=== PATIENT | female | born 1965 | race Caucasian/White ===

== ENCOUNTER 2019-07-02 11:32 | Outpatient (CLI) | payer MEDICAID ==
--- NOTE | 2019-07-03 02:33 | Ultrasound Report ---
Reason: RLQ ABD MASS Procedure Date: 07/02/2019 Accession Number: [id number] / [id number] Procedure: US - Abdomen Limited CPT Code: Final Report FULL RESULT: EXAM: ABDOMEN ULTRASOUND LIMITED EXAM DATE: 07/02/2019 12:23 PM CLINICAL HISTORY: Right lower quadrant abdominal mass. Right lower quadrant abdominal swelling, mass, and lump for 8 years. Intermittent worsening over the last 3-4 months. Worsening with meals. COMPARISON: None. TECHNIQUE: Real-time scanning was performed with static images obtained. Images are acquired in supine as well as upright position. FINDINGS IMPRESSION: 1. No sonographic abnormality is demonstrated at the area of concern. 2. There is no definite hernia demonstrated. RADIA
== END 2019-07-02 11:33 | disposition home or self-care (01) ==
LOC: DI 11:32
PROVIDERS: ATTEND Registered Nurse
DX: R19.03 Right lower quadrant abdominal swelling, mass and lump (principal)
CPT/HCPCS: 76705

== ENCOUNTER 2023-09-20 08:00 | Outpatient (CLI) | payer MEDICAID ==
[2023-09-20 14:56] LABS: BASOPHILS % (AUTO) 0.5 %; EOSINOPHILS # (AUTO) 0.1 10^3/uL (0.0-0.7); EOSINOPHILS % (AUTO) 1.5 %; HCT - HEMATOCRIT 43.8 % (37.0-47.0); HGB - HEMOGLOBIN 14.2 g/dL (12.0-16.0); LYMPHOCYTES # (AUTO) 1.7 10^3/uL (1.5-3.5); LYMPHOCYTES % (AUTO) 28.4 %; MEAN CORPUSCULAR HEMOGLOBIN 30.9 pg (27.0-31.0); MEAN CORPUSCULAR HGB CONC 32.4 g/dL (32.0-36.0); MEAN CORPUSCULAR VOLUME 95.4 fL (81.0-99.0); MEAN PLATELET VOLUME 10.2 fL (7.9-10.8); MONOCYTES # (AUTO) 0.4 10^3/uL (0.0-1.0); MONOCYTES % (AUTO) 7.5 %; NEUTROPHILS # (AUTO) 3.6 10^3/uL (1.5-6.6); NEUTROPHILS % (AUTO) 61.8 %; PLT - PLATELET COUNT 307 10^3/uL (130-450); RED BLOOD COUNT 4.59 10^6/uL (4.20-5.40); RED CELL DISTRIBUTION WIDTH 13.6 % (12.0-15.0); WHITE BLOOD COUNT 5.9 x10^3/uL (4.8-10.8)
[2023-09-20 15:03] LABS: ALBUMIN 4.4 g/dL (3.2-5.5); ALBUMIN/GLOBULIN RATIO 1.5 (1.0-2.2); ALKALINE PHOSPHATASE 90 IU/L (42-121); ALT ALANINE AMINOTRANSFERASE 20 IU/L (10-60); AST ASPARTATE AMINOTRANSFERASE 17 IU/L (10-42); BILIRUBIN,TOTAL 0.6 mg/dL (0.2-1.0); BUN - BLOOD UREA NITROGEN 17 mg/dL (6-20); CALCIUM 9.4 mg/dL (8.5-10.3); CARBON DIOXIDE - CO2 28 mmol/L (21-32); CHLORIDE 106 mmol/L (101-111); CHOL/HDL RATIO 3.2 (<4.4); CHOLESTEROL 228 mg/dL; CREATININE 0.7 mg/dL (0.6-1.3); GFR - MDRD 86 (>89); GLUCOSE 100 mg/dL (74-104); HDL CHOLESTEROL 72 mg/dL; LDL CHOLESTEROL,CALCULATED 134 mg/dL; LDL/HDL RATIO 1.9 (<4.4); POTASSIUM 4.5 mmol/L (3.5-4.5); SODIUM 141 mmol/L (135-145); TOTAL PROTEIN 7.3 g/dL (6.4-8.9); TRIGLYCERIDES 108 mg/dL (48-352); VLDL CHOLESTEROL 22 mg/dL
[2023-09-20 15:33] LABS: THYROID STIMULATING HORMONE 2.77 uIU/mL (0.34-5.60)
== END 2023-09-20 08:01 | disposition home or self-care (01) ==
LOC: LAB.S 08:00
PROVIDERS: ATTEND Physician Assistant Medical
DX: Z13.9 Encounter for screening, unspecified (principal)
CPT/HCPCS: 36415; 80050; 80061; 83721

== ENCOUNTER 2023-10-25 08:27 | Outpatient (CLI) | payer MEDICAID ==
--- NOTE | 2023-10-25 14:37 | Ultrasound Report ---
PROCEDURE: Extremity Soft Tissue Limited INDICATIONS: MASS OF ARM AND STERNUM TECHNIQUE: Real-time scanning was performed of the right elbow, with image documentation. COMPARISON: None. FINDINGS: Target ultrasound of the right inner elbow region demonstrates no sonographic abnormality. IMPRESSION: No sonographic abnormality. Reviewed by: Rolo Santa MD on 10/25/2023 2:36 PM PST Approved by: Rolo Santa MD on 10/25/2023 2:36 PM PST Station ID: [id number]
--- NOTE | 2023-10-25 14:39 | Ultrasound Report ---
PROCEDURE: Chest INDICATIONS: MASS OF ARM AND STERNUM TECHNIQUE: Real-time scanning was performed, with image documentation. COMPARISON: None. FINDINGS: Targeted ultrasound of the sternum demonstrates a hypoechoic lesion deep to the scar of the sternum, with mild peripheral vascularity. This measures 6 x 3 x 8 mm. IMPRESSION: Hypoechoic lesion deep to the scar of the sternum measuring 8 mm. 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 Consider follow-up ultrasound in 6-12 months to ensure stability. Reviewed by: Rolo Santa MD on 10/25/2023 2:38 PM PST Approved by: Rolo Santa MD on 10/25/2023 2:38 PM PST Station ID: [id number]
== END 2023-10-25 08:28 | disposition home or self-care (01) ==
LOC: DI 08:27
PROVIDERS: ATTEND Physician Assistant Medical
DX: R22.2 Localized swelling, mass and lump, trunk (principal); M79.89 Other specified soft tissue disorders